=== PATIENT | male | born 1970 | race Two or more races ===

== ENCOUNTER 2021-01-08 16:39 | Emergency (ER) | payer OTHER ==
[~2021-01-08 16:39] MED LIST: ERYTHROMYCIN O3.5 GM EYELF
[2021-01-08 17:35] LABS: HEMOGLOBIN 14.3 gm/dl (14.0-17.5); RED BLOOD COUNT 4.58 M/UL (4.20-5.50)
[2021-01-08 18:03] LABS: BUN/CREATININE RATIO 19 (0-10)
== END 2021-01-08 19:40 | disposition home or self-care (01) ==
LOC: ER1 16:39
PROVIDERS: Physician Assistant
DX: R07.81 Pleurodynia (principal); E11.9 Type 2 diabetes mellitus without complications; I10 Essential (primary) hypertension; F17.210 Nicotine dependence, cigarettes, uncomplicated
CPT/HCPCS: 71045; 80053; 82550; 82553; 83874; 84484; 85025; 85379; 93005; 99285